=== PATIENT | female | born 1955 | race Caucasian/White ===

== ENCOUNTER 2022-03-09 00:03 | Emergency (ER) | payer MEDICARE ==
[~2022-03-09] VITALS: Ht 167.6 cm; Wt 89.8 kg
[2022-03-09 00:42] LABS: BASOPHILS ABSOLUTE AUTO 0.02 K/mm3 (0.00-0.23); BASOPHILS PERCENT AUTO 0 % (0-2); EOSINOPHILS ABSOLUTE AUTO 0.04 K/mm3 (0.00-0.68); EOSINOPHILS PERCENT AUTO 0 % (0-6); Hematocrit 38.2 % (33.0-51.0); Hemoglobin 12.8 g/dL (11.5-16.0); IMMATURE GRAN ABSOLUTE AUTO 0.04 K/mm3 (0.00-0.10); IMMATURE GRAN PERCENT AUTO 0 % (0-1); LYMPHOCYTES ABSOLUTE AUTO 1.03 K/mm3 (0.84-5.20); LYMPHOCYTES PERCENT AUTO 12 % (21-46); MONOCYTES ABSOLUTE AUTO 0.61 K/mm3 (0.16-1.47); MONOCYTES PERCENT AUTO 7 % (4-13); Mean Corpuscular HGB 30.7 pg (26.0-34.0); Mean Corpuscular HGB Conc 33.5 g/dL (31.5-36.5); Mean Corpuscular Volume 92 fL (80-100); Mean Platelet Volume 9.3 fL (9.1-12.4); NEUTROPHILS ABSOLUTE AUTO 7.15 K/mm3 (1.96-9.15); NEUTROPHILS PERCENT AUTO 81 % (41-73); Platelet Count 305 K/mm3 (150-400); RDW Coefficient Variation 13.1 % (11.7-14.2); RDW Standard Deviation 44.4 fL (35.1-46.3); Red Blood Cell Count 4.17 M/mm3 (3.80-5.20); White Blood Cell Count 8.89 K/mm3 (4.00-11.30)
[2022-03-09 01:00] LABS: Albumin, Blood 3.4 g/dL (3.4-5.0); Albumin/Globulin Ratio 0.8 (0.8-1.8); Bilirubin, Total 0.8 mg/dL (0.1-1.0); Bun/Creatinine Ratio 14.6 (12.0-20.0); C-REACTIVE PROTEIN, EXT RANGE 5.25 mg/dL (0.000-0.300); Calcium, Blood 9.2 mg/dL (8.5-10.1); Creatinine, Blood 0.96 mg/dL (0.40-1.00); Globulin, Blood 4.4 g/dL (2.2-4.0); Magnesium, Blood 1.5 mg/dL (1.6-2.4); Potassium, Blood 3.8 mmol/L (3.5-5.5); Total Protein, Blood 7.8 g/dL (6.4-8.2)
[2022-03-09] MEDS ORDERED: ALLO100 PO (01:07)
[2022-03-09] MEDS ORDERED: ATOR40TA PO (01:07)
[2022-03-09] MEDS ORDERED: FOLI1 PO (01:07)
[2022-03-09] MEDS ORDERED: HYDCHL25 PO (01:08)
[2022-03-09] MEDS ORDERED: Norco 10-325 T1 EACH PO (01:08)
[2022-03-09] MEDS ORDERED: HYDR100 PO (01:08)
[2022-03-09] MEDS ORDERED: INDO50 PO (01:08)
[2022-03-09] MEDS ORDERED: LOSA50 PO (01:09)
[2022-03-09] MEDS ORDERED: PANT40 PO (01:09)
[2022-03-09] MEDS ORDERED: Ropinirole HCl1 MG PO (01:10)
[2022-03-09] MEDS ORDERED: TIZA4 PO (01:10)
[2022-03-09] MEDS ORDERED: NITR.6SL SL (01:10)
[2022-03-09 01:50] LABS: Influenza A, PCR NEGATIVE (NEGATIVE); Influenza B, PCR NEGATIVE (NEGATIVE); Resp Syncytial Virus, PCR NEGATIVE (NEGATIVE); SARS-Cov-2 (COVID-19) PCR, MMC NEGATIVE (NEGATIVE)
== END 2022-03-09 05:57 | disposition home or self-care (01) ==
LOC: ER 00:03
PROVIDERS: Student in an Organized Health Care Education/Training Program
DX: R09.1 Pleurisy (principal); R79.82 Elevated C-reactive protein (CRP); I10 Essential (primary) hypertension; J43.9 Emphysema, unspecified; K21.9 Gastro-esophageal reflux disease without esophagitis; F17.210 Nicotine dependence, cigarettes, uncomplicated; Z20.822 Contact with and (suspected) exposure to COVID-19; Z88.0 Allergy status to penicillin; Z79.899 Other long term (current) drug therapy
CPT/HCPCS: 0241U; 71046; 71260; 80053; 83735; 83880; 84484; 85025; 85379; 85651; 86140; 93005; 93010; J1885; J2405; J3475; Q9967

== ENCOUNTER → 2023-08-14 | Outpatient (CLI) | payer MEDICARE ==
[~2023-08-14] MED LIST: ALLO100 PO; ATOR40TA PO; FOLI1 PO; HYDCHL25 PO; HYDR100 PO; INDO50 PO; LOSA50 PO; NITR.6SL SL; Norco 10-325 T1 EACH PO; PANT40 PO; Ropinirole HCl1 MG PO; TIZA4 PO
[2023-08-15 10:56] LABS: Stool Occult Bld Immuno 1 Negative (NEGATIVE)
== END ==
LOC: LAB SHORT 13:59 → LAB 13:59
PROVIDERS: Nurse Practitioner Family
DX: Z12.11 Encounter for screening for malignant neoplasm of colon (principal)
CPT/HCPCS: 82274